=== PATIENT | female | born 1990 | race African-American/Black ===

== ENCOUNTER 2016-07-16 13:42 | Emergency (ER) | payer OTHER ==
[2016-07-16 13:53] VITALS: BP 100/53; PULSE 73; TEMP 98.5; BMI 26.6
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
[2016-07-16] MEDS ORDERED: SODIUM CHLORIDE 1,000 ML IV STA (14:58)
[2016-07-16] MEDS ORDERED: METOCLOPRAMIDE HCL INJECTION 10 MG/2 ML VIAL IVPB ONE (14:58)
[2016-07-16] MEDS ORDERED: METOCLOPRAMIDE HCL INJECTION 10 MG/2 ML VIAL ONE (15:10)
== END 2016-07-16 17:12 | disposition home or self-care (01) ==
LOC: JERFT 13:42
PROC: 3E033GC Introduction of Other Therapeutic Substance into Peripheral Vein, Percutaneous Approach (ICD-10-PCS; principal; 2016-07-16)
PROC: 3E0337Z Introduction of Electrolytic and Water Balance Substance into Peripheral Vein, Percutaneous Approach (ICD-10-PCS; 2016-07-16)
DX: O26.891 Other specified pregnancy related conditions, first trimester (principal); Z3A.01 Less than 8 weeks gestation of pregnancy; Y07.03 Male partner, perpetrator of maltreatment and neglect; Y04.2XXA Assault by strike against or bumped into by another person, initial encounter; Y93.9 Activity, unspecified; Y92.9 Unspecified place or not applicable
CPT/HCPCS: 76801-TC; 96361; 96374; 99281-25

== ENCOUNTER 2017-03-15 14:39 | Emergency (ER) | payer OTHER ==
[2017-03-15 14:54] VITALS: BMI 27.4
--- NOTE | 2017-03-15 17:15 | PDOC ---
History of Present Illness - General Chief Complaint: Vaginal Bleeding Stated Complaint: VAGINAL BLEEDING/7 WEEKS Time Seen by Provider: 03/15/17 17:01 - History of Present Illness Initial Comments: 03/15/17 18:06 26 F, @ 7 weeks, with 4 prior abortions and 1 miscarriage, no other significant past medical history, who presents to the ED with 6 days of vaginal spotting. She reports very mild bleeding that has not increased in severity. She also complains of mild suprapubic pain that is more pronounced on the left, as well as some intermittent nausea but no vomiting. The patient denies any saturated pads or passing any clots. Pt has not f/u'ed with OB yet for this and has not had an ultrasound. Pt denies F/C. Denies N/V/D. Denies dysuria. Past History - Past Medical History Allergies/Adverse Reactions: Allergies Allergy/AdvReac Type Severity Reaction Status Date / Time No Known Allergies Allergy Verified 03/15/17 14:51 Home Medications: Ambulatory Orders Vit/Iron Fumarate/FA [ Tablet] 1 each PO DAILY #30 tablet 07/16 COPD: No - Reproductive History Is Patient Now?: Yes (#): 6 Para: 1 Therapeutic (s) & number: Yes (2) Spontaneous : 2 - Suicide/Smoking/Psychosocial Hx Smoking Status: No Smoking History: Never smoked Have you smoked in the past 12 months: Yes Number of Cigarettes Smoked Daily: 1 Information on smoking cessation initiated: Yes 'Breaking Loose' booklet given: 03/15/17 Hx Alcohol Use: No Drug/Substance Use Hx: No Substance Use Type: None Review of Systems - Review of Systems Comments:: 03/15/17 18:08 "GENERAL/CONSTITUTIONAL: No fever or chills. No weakness. HEAD, EYES, EARS, NOSE AND THROAT: No change in vision. No ear pain or discharge. No sore throat. CARDIOVASCULAR: No chest pain or shortness of breath. RESPIRATORY: No cough, wheezing, or hemoptysis. GASTROINTESTINAL: Present: suprapubic pain No nausea, vomiting, diarrhea or constipation. GENITOURINARY: Present: vaginal spotting No dysuria, frequency, or change in urination. MUSCULOSKELETAL: No joint or muscle swelling or pain. No neck or back pain. SKIN: No rash NEUROLOGIC: No headache, vertigo, loss of consciousness, or change in strength/ sensation. ENDOCRINE: No increased thirst. No abnormal weight change. HEMATOLOGIC/LYMPHATIC: No anemia, easy bleeding, or history of blood clots. ALLERGIC/IMMUNOLOGIC: No hives or skin allergy. " *Physical Exam - Vital Signs Last Vital Signs Temp Pulse Resp BP Pulse Ox 98.7 F 62 18 102/58 100 03/15/17 14:51 03/15/17 14:51 03/15/17 14:51 03/15/17 14:51 03/15/17 14:51 - Physical Exam Comments: 03/15/17 18:09 "GENERAL: Awake, alert, and fully oriented, in no acute distress HEAD: No signs of trauma EYES: PERRLA, EOMI, sclera anicteric, conjunctiva clear ENT: Auricles normal inspection, hearing grossly normal, nares patent, oropharynx clear without exudates. Moist mucosa NECK: Nontender, no stepoffs, Normal ROM, supple, no lymphadenopathy, JVD, or masses LUNGS: Breath sounds equal, clear to auscultation bilaterally. No wheezes, and no crackles HEART: Regular rate and rhythm, normal S1 and S2, no murmurs, rubs or gallops ABDOMEN: Soft, gravid, mild suprapubic and LLQ tenderness, normoactive bowel sounds. No guarding, no rebound. No masses : no CMT, os closed, scant blood in vault, no adnexal masses or tenderness EXTREMITIES: Normal range of motion, no edema. No clubbing or cyanosis. No cords, erythema, or tenderness NEUROLOGICAL: Cranial nerves II through XII intact. 5/5 strength and sensation in all extremities, Normal speech, normal gait SKIN: Warm, Dry, normal turgor, no rashes or lesions noted. " ED Treatment Course - LABORATORY CBC & Chemistry Diagram: 03/15/17 17:40 03/15/17 17:40 - RADIOLOGY Radiology Studies Ordered: Category Date Time Status TRANSVAGINAL ULTRASOUND US [US] Stat Ultrasound 03/15/17 17:10 Ordered Medical Decision Making - Medical Decision Making 03/15/17 18:09 26 F with vaginal spotting @ 7 weeks . Will r/o ectopic . Also consider spontaneous ab. Os closed at this time. - Labs, beta HCG, UA, T&S - TVUS 03/15/17 21:00 Pt refusing to wait any longer for TVUS read. US images were sent to Imaging Distribution Designer at 7:30PM. Imaging Distribution Designer called multiple times. On my read, there appears to be an IUP with gestational sac and pole. No evidence of ectopic. Will DC pt at this time. Pt to be called if anything concerning on official read of TVUS. 03/15/17 21:14 TVUS report shows single IUP with FHR 163. Low amniotic fluid noted. Pt informed of results. Instructed to f/u with rn patient services within 1 week. Pt expresses understanding that failure to follow up could threaten her . I discussed the physical exam findings, ancillary test results and final diagnoses with the patient. I answered all of the patient's questions. The patient was satisfied with the care received and felt comfortable with the discharge plan and treatment plan. The patient agrees to follow up with her OB/ structural steel shop supervisor within 24-72 hours. *DC/Admit/Observation/Transfer Diagnosis at time of Disposition: Vaginal bleeding before 22 weeks gestation - Discharge Dispostion Disposition: HOME Condition at time of disposition: Stable - Referrals Referrals: Easton Sunshine [Primary Care Provider] - Diana Hobson MD [Staff Physician] - - Patient Instructions Printed Discharge Instructions: DI for Vaginal Bleeding During Additional Instructions: You must follow up with an premium representative within 3 days for repeat ultrasound and blood tests. We cannot definitively rule out ectopic at this time, which can potentially be life threatening, so it is important for you to follow up. Call the above number to make an appointment with our OB clinic. If you experience worsening pain, bleeding, or any other concerning symptoms, return to the ER immediately. - Post Discharge Activity - Attestations Physician Attestion: 03/15/17 20:42 I, Dr. Clif Cantor MD, attest that this document has been prepared under my direction and personally reviewed by me in its entirety. I further attest, that it accurately reflects all work, treatment, procedures and medical decision -making performed by me.
[2017-03-15 17:59] LABS: BASOPHIL 0.5 % (0-2.0); EOSINOPHIL 1.5 % (0-4.5); MCH 30.1 pg (25.7-33.7); MCHC 33.7 g/dl (32.0-36.0); MEAN CELL VOLUME 89.3 fl (80-96); NEUTROPHILS 60.4 % (42.8-82.8); PLATELET COUNT 186 K/MM3 (134-434); RDW 13.6 % (11.6-15.6); WHITE BLOOD COUNT 10.9 K/mm3 (4.0-10.0)
[2017-03-15 18:02] LABS: URINE APPEARANCE CLOUDY; URINE BILIRUBIN NEGATIVE (NEGATIVE); URINE BLOOD 3+ (NEGATIVE); URINE COLOR AMBER; URINE GLUCOSE (UA) NEGATIVE (NEGATIVE); URINE KETONE NEGATIVE (NEGATIVE); URINE NITRITE NEGATIVE (NEGATIVE)
[2017-03-15 18:08] LABS: ALBUMIN 3.6 g/dl (3.4-5.0); ANION GAP 6 (8-16); BILIRUBIN,TOTAL 0.1 mg/dL (0.2-1.0); CALCIUM 8.7 mg/dL (8.5-10.1); CO2 27 mmol/L (21-32); CREATININE 0.6 mg/dL (0.55-1.02); GLUCOSE,RANDOM 85 mg/dL (74-106); SGOT/AST 14 U/L (15-37); SGPT/ALT 25 U/L (12-78); TOT PROT 6.8 g/dl (6.4-8.2)
[2017-03-15 18:23] LABS: ALK PHOS 65 U/L (45-117)
[2017-03-15 18:29] LABS: URINE PROTEIN 1+ (NEGATIVE)
[2017-03-15 18:30] LABS: URINE LEUK ESTERASE 2+ (NEGATIVE)
[2017-03-15 18:56] LABS: URINE MUCUS MANY; URINE RBC 191 /hpf (0-3); URINE WBC 47 /hpf (3-5)
[2017-03-15 21:11] VITALS: BP 110/78; PULSE 78; TEMP 98.2
[2017-03-15 23:39] LABS: URINE LEUK ESTERASE 1+ (NEGATIVE)
== END 2017-03-15 21:11 | disposition home or self-care (01) ==
LOC: JER 14:39
DX: O26.891 Other specified pregnancy related conditions, first trimester (principal); O20.8 Other hemorrhage in early pregnancy; Z3A.01 Less than 8 weeks gestation of pregnancy
CPT/HCPCS: 36415; 76830-TC; 80053; 81003; 81015; 83690; 84702; 85025; 86850; 86900; 86901; 87086; 99284-25

== ENCOUNTER 2017-04-09 11:40 | Emergency (ER) | payer OTHER ==
[2017-04-09 11:49] VITALS: TEMP 97.8; BMI 27.4
--- NOTE | 2017-04-09 13:48 | PDOC ---
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 Pt states she has not been able to keep anything down for 3 weeks, not even a sip of water. When pressed, she states she is able to hold down 1 meal per day. Pt requesting IV. Pt states she has been vomiting several times daily. Vomit is yellow, approximately 1 cup. Pt admits to having chills, but did not measure temp at home. Pt also admits to dark colored urine and feeling constipated. She states she had spotting early in this , which stopped 2 weeks ago. No other complaints. Pt denies abdominal pain, diarrhea, blood in urine/stools. Past History - Past Medical History Allergies/Adverse Reactions: Allergies Allergy/AdvReac Type Severity Reaction Status Date / Time No Known Allergies Allergy Verified 04/09/17 11:49 Home Medications: Ambulatory Orders Doxylamine Succinate/Vit B6 [Flakito Farrar 10-10 mg Tablet] 2 each PO HS #20 tablet. 04/09/17 COPD: No - Reproductive History Is Patient Now?: Yes (#): 5 Para: 2 Therapeutic (s) & number: Yes (2) Spontaneous : 2 - Suicide/Smoking/Psychosocial Hx Smoking Status: No Smoking History: Never smoked Have you smoked in the past 12 months: Yes Number of Cigarettes Smoked Daily: 1 'Breaking Loose' booklet given: 03/15/17 Hx Alcohol Use: No Drug/Substance Use Hx: No Substance Use Type: None Review of Systems - Review of Systems Able to Perform ROS?: Yes Is the patient limited Greek proficient: No Constitutional: Yes: Symptoms Reported, Chills, Loss of Appetite. No: Diaphoresis, Fever, Night Sweats HEENTM: Yes: Symptoms Reported. No: Blurred Vision, Nose Congestion, Throat Pain Respiratory: Yes: Symptoms reported. No: Cough, Shortness of Breath, Wheezing Cardiac (ROS): Yes: Symptoms Reported. No: Chest Pain, Edema ABD/GI: Yes: Symptoms Reported, Constipated, Nausea, Poor Appetite, Poor Fluid Intake, Vomiting. No: Abdominal Distended, Diarrhea, Rectal Bleeding, Indigestion : Yes: Symptoms Reported. No: Burning, Dysuria, Discharge, Frequency Musculoskeletal: Yes: Symptoms Reported. No: Back Pain, Joint Pain *Physical Exam - Vital Signs Last Vital Signs Temp Pulse Resp BP Pulse Ox 97.8 F 61 20 114/71 100 04/09/17 11:46 04/09/17 11:46 04/09/17 11:46 04/09/17 11:46 04/09/17 11:46 - Physical Exam General Appearance: Yes: Nourished, Appropriately Dressed. No: Apparent Distress HEENT: positive: EOMI, COLT, Normal ENT Inspection (moist mucous membranes), Normal Voice, Symmetrical. negative: Pale Conjunctivae Neck: positive: Supple. negative: Tender Respiratory/Chest: positive: Lungs Clear, Normal Breath Sounds. negative: Chest Tender, Respiratory Distress, Labored Respiration Cardiovascular: positive: Regular Rhythm, Regular Rate, S1, S2 (distant) Gastrointestinal/Abdominal: positive: Normal Bowel Sounds, Flat, Soft. negative : Tender Neurologic: positive: Fully Oriented, Alert ED Treatment Course - LABORATORY CBC & Chemistry Diagram: 04/09/17 15:05 04/09/17 15:05 Medical Decision Making - Medical Decision Making 04/09/17 13:51 Pt is a 27 y/o F with PMH 2 elective and 2 spontaneous abortions who complains of nausea and vomiting for 2-3 weeks. Plan -CBC -CMP -UA -UCx -U preg -U/S -D50 LR -Pepcid -ondansetron 04/09/17 16:17 Labs unremarkable Pt still nauseous. 8 Zofran *DC/Admit/Observation/Transfer Diagnosis at time of Disposition: Dehydration during , Hyperemesis arising during - Discharge Dispostion Disposition: HOME Admit: No - Prescriptions Prescriptions: Doxylamine Succinate/Vit B6 [Flakito Farrar 10-10 mg Tablet] 2 each PO HS #20 tablet.dr - Referrals Referrals: Easton Sunshine [Primary Care Provider] - Michele Xiong MD [Staff Physician] - - Patient Instructions Additional Instructions: Please make sure you follow up with your primary care doctor and your CLOTHES MARKER within 3 days. Please take all your prescription medications and your vitamin supplements as directed. If you develop new symptoms or if your symptoms get worse, please return to the emergency department. - Post Discharge Activity
[2017-04-09] MEDS ORDERED: ONDANSETRON 4 MG/2 ML VIAL IVPUSH ONE ×2 (14:45→17:13)
[2017-04-09] MEDS ORDERED: DEXTROSE 5%-LACTATED RINGERS 1,000 ML IV SCH (14:45)
[2017-04-09] MEDS ORDERED: ONDANSETRON 4 MG/2 ML VIAL ONE ×2 (15:22→17:39)
[2017-04-09] MEDS ORDERED: FAMOTIDINE 20 MG/50 ML IVPB 20 MG/50 ML MG IVPB ONE (15:22)
[2017-04-09 15:24] LABS: BASO % 0.4 % (0-2.0); EOS % 0.4 % (0-4.5); HEMATOCRIT 37.2 % (32.4-45.2); HEMOGLOBIN 12.5 GM/dL (10.7-15.3); LYMPH % 19.1 % (8-40); MCH 29.5 pg (25.7-33.7); MCHC 33.5 g/dl (32.0-36.0); MEAN CELL VOLUME 87.9 fl (80-96); MEAN PLT VOLUME 9.8 fl (7.5-11.1); MONO % 5.5 % (3.8-10.2); NEUT % 74.6 % (42.8-82.8); PLATELET COUNT 168 K/MM3 (134-434); RBC 4.23 M/mm3 (3.60-5.2); RDW 13.3 % (11.6-15.6)
[2017-04-09] MEDS ORDERED: FAMOTIDINE IV 20 MG/12 ML VIAL IVPUSH ONE (15:26)
[2017-04-09 15:40] LABS: URINE APPEARANCE CLOUDY; URINE BILIRUBIN NEGATIVE (NEGATIVE); URINE BLOOD NEGATIVE (NEGATIVE); URINE COLOR AMBER; URINE GLUCOSE (UA) NEGATIVE (NEGATIVE); URINE KETONE 2+ (NEGATIVE); URINE NITRITE NEGATIVE (NEGATIVE); URINE UROBILINOGEN NEGATIVE mg/dL (0.2-1.0)
[2017-04-09 16:17] LABS: URINE LEUK ESTERASE 1+ (NEGATIVE); URINE PROTEIN 2+ (NEGATIVE)
[2017-04-09 16:23] LABS: ALK PHOS 52 U/L (45-117); ANION GAP 7 (8-16); BILIRUBIN,TOTAL 0.3 mg/dL (0.2-1.0); BLOOD UREA NITROGEN 5 mg/dL (7-18); CALCIUM 9.2 mg/dL (8.5-10.1); CHLORIDE 104 mmol/L (98-107); CO2 27 mmol/L (21-32); CREATININE 0.5 mg/dL (0.55-1.02); GLUCOSE,RANDOM 69 mg/dL (74-106); POTASSIUM 3.9 mmol/L (3.5-5.1); SGOT/AST 11 U/L (15-37); SGPT/ALT 20 U/L (12-78); SODIUM 138 mmol/L (136-145); TOT PROT 7.2 g/dl (6.4-8.2)
[2017-04-09 17:05] LABS: EPI CELLS MANY /HPF (FEW); URINE MUCUS MANY
--- NOTE | 2017-04-09 17:22 | PDOC ---
Attending Attestation - Resident Resident Name: Sergio Childers - ED Attending Attestation I have performed the following: I have examined & evaluated the patient, The case was reviewed & discussed with the resident, I agree w/resident's findings & plan, Exceptions are as noted - HPI HPI: 04/09/17 17:18 27-year-old female, 5 para 1, at approximately 10 weeks gestation presents with numerous episodes of nonbloody, nonbilious vomiting for the past several weeks with failure to gain weight. - Physicial Exam PE: 04/09/17 17:18 Patient is awake and alert, nontoxic-appearing, afebrile, hemodynamically stable No scleral icterus mmm rrr cta sft, nt, nd - Medical Decision Making 04/09/17 17:20 Patient is a 27-year-old female, 5 para 1, 10 weeks gestation presents with signs and symptoms of hyperemesis gravidarum. Patient has received on liter of D5 LR as well as Zofran and Pepcid with improvement in level of her symptoms. Patient is able tolerate by mouth liquids. CBC/CMP are within normal limit. Urinalysis reveals numerous epithelial cells and 11 wbc's. The specimen is contaminated. Will discharge patient with they Diclegis. Will advise GRIP follow-up.
[2017-04-09 17:47] VITALS: BP 110/58; PULSE 68
[2017-04-09] MEDS ORDERED: FAMOTIDINE IV 20 MG/12 ML VIAL IVPUSH SCH (22:00)
== END 2017-04-09 17:48 | disposition home or self-care (01) ==
LOC: JER 11:40
PROC: 3E033GC Introduction of Other Therapeutic Substance into Peripheral Vein, Percutaneous Approach (ICD-10-PCS; principal; 2017-04-09)
DX: O26.891 Other specified pregnancy related conditions, first trimester (principal); O21.1 Hyperemesis gravidarum with metabolic disturbance; Z3A.11 11 weeks gestation of pregnancy
CPT/HCPCS: 36415; 80053; 81003; 81015; 85025; 87086; 96365; 96367; 96375; 96376; 99282-25

== ENCOUNTER 2017-12-23 23:38 | Emergency (ER) | payer SELFPAY ==
[2017-12-23 23:44] VITALS: BMI 28.2
--- NOTE | 2017-12-24 01:01 | PDOC ---
History of Present Illness - General Chief Complaint: Pain Stated Complaint: VOMITING,ABDOMINAL PAIN Time Seen by Provider: 12/24/17 00:13 History Source: Patient Exam Limitations: No Limitations - History of Present Illness Travel History: No Timing/Duration: reports: intermittent Abdominal Pain Onset Location: reports: suprapubic, other (pelvic discomfort) Pain Radiation: reports: no radiation Activities at Onset: reports: none Aggravating Factors: improves with: None Past History - Travel Traveled outside of the country in the last 30 days: No Close contact w/someone who was outside of country & ill: No - Past Medical History Allergies/Adverse Reactions: Allergies Allergy/AdvReac Type Severity Reaction Status Date / Time No Known Allergies Allergy Verified 12/23/17 23:44 Home Medications: Ambulatory Orders Doxylamine Succinate/Vit B6 [Diclegis Dr 10-10 mg Tablet] 2 each PO HS #20 tablet.dr 04/09/17 Cephalexin Monohydrate [Keflex -] 500 mg PO BID #10 capsule 12/24/17 Ondansetron [Zofran Odt -] 4 mg SL TID PRN #21 od.tablet 12/24/17 COPD: No - Surgical History Other Surgical History: 12/24/17 01:08 c section x 1 - Reproductive History (#): 5 Para: 2 Therapeutic (s) & number: Yes (2) Spontaneous : 2 - Suicide/Smoking/Psychosocial Hx Smoking Status: No Smoking History: Never smoked Have you smoked in the past 12 months: Yes Number of Cigarettes Smoked Daily: 1 'Breaking Loose' booklet given: 03/15/17 Hx Alcohol Use: No Drug/Substance Use Hx: No Substance Use Type: None Review of Systems - Review of Systems Able to Perform ROS?: Yes Is the patient limited Burundian proficient: No Constitutional: No: Symptoms Reported, See HPI, Chills, Diaphoresis, Fever, Loss of Appetite, Malaise, Night Sweats, Weakness, Weight Stable, Unintentional Wgt. Loss, Unexplained wgt Loss, Other HEENTM: No: Symptoms Reported, See HPI, Eye Pain, Blurred Vision, Tearing, Recent change in vision, Double Vision, Cataracts, Ear Pain, Ocular Prothesis, Ear Discharge, Nose Pain, Nose Congestion, Tinnitus, Nose Bleeding, Hearing Loss , Throat Pain, Throat Swelling, Mouth Pain, Dental Problems, Difficulty Swallowing, Mouth Swelling, Other Respiratory: No: Symptoms reported, See HPI, Cough, Orthopnea, Shortness of Breath, SOB with Exertion, SOB at Rest, Stridor, Wheezing, Productive cough, Hemoptysis, Other Cardiac (ROS): No: Symptoms Reported, See HPI, Chest Pain, Edema, Irregular Heart Rate, Lightheadedness, Palpitations, Syncope, Chest Tightness, Other ABD/GI: Yes: Nausea, Vomiting, Other (mild suprapubic tenderness) : No: Symptoms Reported, See HPI, Burning, Dysuria, Discharge, Frequency, Flank Pain, Hematuria, Incontinence, Pain, Urgency, Testicular Mass, Testicular Swelling, Lesions, Testicular Pain, Other Musculoskeletal: No: Symptoms Reported, See HPI, Back Pain, Gout, Joint Pain, Joint Swelling, Muscle Pain, Muscle Weakness, Neck Pain, Joint Stiffness, Other Integumentary: No: Symptoms Reported, See HPI, Bruising, Change in Color, Change in Hair/Nails, Dryness, Erythema, Flushing, Lesions, Lumps, Pallor, Pruritus, Rash, Sweating, Other Neurological: No: Symptoms reported, See HPI, Headache, Numbness, Paresthesia, Pre-Existing Deficit, Seizure, Tingling, Tremors, Weakness, Unsteady Gait, Ataxia, Dizziness, Other Hematologic/Lymphatic: No: Symptoms Reported, See HPI, Anemia, Blood Clots, Easy Bleeding, Easy Bruising, Bleeding Diathesis, Lymph Node Abnormalities, Swollen Glands, Other *Physical Exam - Vital Signs Last Vital Signs Temp Pulse Resp BP Pulse Ox 98.8 F 64 18 115/47 L 99 12/23/17 23:42 12/23/17 23:42 12/23/17 23:42 12/23/17 23:42 12/23/17 23:42 - Physical Exam General Appearance: Yes: Nourished, Appropriately Dressed HEENT: positive: EOMI, Normal Voice Neck: positive: Supple Respiratory/Chest: positive: Lungs Clear Cardiovascular: positive: Regular Rhythm, Regular Rate Female Pelvic Exam: positive: other (she denies vaginal bleeding) Gastrointestinal/Abdominal: positive: Other (mild suprapubic discomfort) Musculoskeletal: positive: Normal Inspection Extremity: positive: Normal Inspection, Normal Range of Motion Integumentary: positive: Normal Color, Warm Neurologic: positive: electric lineman II-XII NML intact, Fully Oriented, Alert, Motor Strength 08/02 ED Treatment Course - LABORATORY CBC & Chemistry Diagram: 12/24/17 01:36 12/24/17 01:36 Medical Decision Making - Medical Decision Making 12/24/17 01:21 27-year-old female presents because she's had nausea, vomiting about a week. She states that her last menstrual cycle was in September and might be . Past medical history 6 para 1. She denies fever or chills or diarrhea. On exam, she has no rebound or guarding on her abdominal exam 12/24/17 02:38 Transvaginal ultrasound reveals a single live intrauterine of 9 weeks 1 day, heart tones are 157 bpm, good flow to both ovaries without signs of torsion UA has some leuk and wbc ,will give keflex Impression hyperemesis related to , first trimester .,uti Plan follow-up with MEDICAL OFFICE TECHNOLOGY INSTRUCTOR 12/24/17 02:41 *DC/Admit/Observation/Transfer Diagnosis at time of Disposition: Hyperemesis gravidarum, First trimester UTI (urinary tract infection) Qualifiers: Urinary tract infection type: site unspecified Hematuria presence: without hematuria Qualified Code(s): N39.0 - Urinary tract infection, site not specified - Discharge Dispostion Disposition: HOME Condition at time of disposition: Stable - Prescriptions Prescriptions: Cephalexin Monohydrate [Keflex -] 500 mg PO BID #10 capsule Ondansetron [Zofran Odt -] 4 mg SL TID PRN #21 od.tablet PRN Reason: Nausea And/Or Vomiting - Referrals Referrals: Callum Matta MD [Primary Care Provider] - - Patient Instructions Printed Discharge Instructions: DI for -- Discomforts and Remedies, DI for Hyperemesis Gravidarum Additional Instructions: please followup with your briquette machine operator helper for continued care pickling operator your medications at your pharmacy - Post Discharge Activity
[2017-12-24 01:23] LABS: URINE APPEARANCE SLCLOUDY; URINE BILIRUBIN NEGATIVE (<2.0 mg/dL); URINE COLOR YELLOW; URINE GLUCOSE (UA) NEGATIVE (NEGATIVE); URINE KETONE 1+ (NEGATIVE); URINE LEUK ESTERASE TRACE (NEGATIVE); URINE NITRITE NEGATIVE (NEGATIVE)
[2017-12-24 01:25] LABS: URINE PROTEIN 1+ (NEGATIVE)
[2017-12-24 01:27] LABS: EPI CELLS MODERATE /HPF (FEW); URINE BACTERIA FEW /hpf (NONE SEEN); URINE MUCUS MANY
[2017-12-24 01:46] LABS: BASO % 0.3 % (0-2.0); EOS % 0.6 % (0-4.5); HEMATOCRIT 35.2 % (32.4-45.2); HEMOGLOBIN 11.8 GM/dL (10.7-15.3); LYMPH % 19.9 % (8-40); MCH 29.3 pg (25.7-33.7); MCHC 33.5 g/dl (32.0-36.0); MEAN CELL VOLUME 87.3 fl (80-96); MEAN PLT VOLUME 9.1 fl (7.5-11.1); MONO % 5.1 % (3.8-10.2); NEUT % 74.1 % (42.8-82.8); PLATELET COUNT 195 K/MM3 (134-434); RBC 4.04 M/mm3 (3.60-5.2); RDW 13.4 % (11.6-15.6)
[2017-12-24 02:07] LABS: ALBUMIN 3.5 g/dl (3.4-5.0); ALK PHOS 50 U/L (45-117); ANION GAP 6 MMOL/L (8-16); BILIRUBIN,TOTAL 0.2 mg/dL (0.2-1); BLOOD UREA NITROGEN 5 mg/dL (7-18); CALCIUM 8.4 mg/dL (8.5-10.1); CHLORIDE 105 mmol/L (98-107); CO2 28 mmol/L (21-32); CREATININE 0.5 mg/dL (0.55-1.3); GLUCOSE,RANDOM 84 mg/dL (74-106); POTASSIUM 3.6 mmol/L (3.5-5.1); SGOT/AST 10 U/L (15-37); SGPT/ALT 16 U/L (13-61); SODIUM 138 mmol/L (136-145); TOT PROT 6.5 g/dl (6.4-8.2)
[2017-12-24] MEDS ORDERED: ONDANSETRON *ODT* 4 MG TABLET SL ONE (02:08)
[2017-12-24] MEDS ORDERED: CEPHALEXIN MONOHYDRATE 500 MG CAPSULE (UD) PO STA (02:08)
[2017-12-24] MEDS ORDERED: ONDANSETRON *ODT* 4 MG TABLET ONE (02:44)
[2017-12-24] MEDS ORDERED: CEPHALEXIN MONOHYDRATE 500 MG CAPSULE (UD) ONE (02:44)
[2017-12-24 02:55] VITALS: BP 118/47; PULSE 75; TEMP 98.2
== END 2017-12-24 03:01 | disposition home or self-care (01) ==
LOC: JER 23:38
DX: O26.891 Other specified pregnancy related conditions, first trimester (principal); O21.0 Mild hyperemesis gravidarum; O23.41 Unspecified infection of urinary tract in pregnancy, first trimester; Z3A.09 9 weeks gestation of pregnancy
CPT/HCPCS: 36415; 76801-TC; 80053; 81003; 81015; 84703; 85025; 99283-25; Q0162

== ENCOUNTER 2018-02-04 11:27 | Emergency (ER) | payer SELFPAY ==
[2018-02-04 11:31] VITALS: BP 103/53; PULSE 80; TEMP 98.2; BMI 29.3
[2018-02-04] MEDS ORDERED: ACETAMINOPHEN 1000 MG/100 ML VIAL (NON FORMULARY) IVPB ONE (12:10)
[2018-02-04] MEDS ORDERED: SODIUM CHLORIDE 1,000 ML IV STA (12:10)
[2018-02-04] MEDS ORDERED: FAMOTIDINE 20 MG/50 ML IVPB 20 MG/50 ML MG IVPB ONE ×2 (12:10→13:33)
--- NOTE | 2018-02-04 12:10 | PDOC ---
History of Present Illness - General Chief Complaint: Pain Stated Complaint: STOMACH PAIN/14 WKS Time Seen by Provider: 02/04/18 12:10 History Source: Patient Exam Limitations: No Limitations - History of Present Illness Initial Comments: 02/04/18 13:57 Ronit 27 YOF female([id number]), currently 14 weeks with no significant past medical history who presents to the emergency department with epigastric abdominal pain since last night. The patient reports that she she woke up at about 1am with worsened abdominal pain that began while she was at work last night. The patient reports that her pain is a burning punching-like sensation. The patient reports some associated loose stool and nausea. She states that while at work last night she was in the bathroom for about an hour with her pain and diarrhea and subsequently began feeling very hot. The patient states that she has not experienced an episode like this in the past. She denies any back pain, urinary symptoms, vaginal bleeding or discharge. The patient also reports some blood per rectum when she has bowel movement, but has hemorrhoids . she denies any other symptoms. She denies any fever, chills, vomiting, constipation . she denies any shortness of breath, chest pain, headache or dizziness. The patient denies any other complaints. Past History - Past Medical History Allergies/Adverse Reactions: Allergies Allergy/AdvReac Type Severity Reaction Status Date / Time No Known Allergies Allergy Verified 02/04/18 11:31 Home Medications: Ambulatory Orders Doxylamine Succinate/Vit B6 [Diclegis 10-10 mg Tablet] 2 each PO HS #20 tablet. 04/09/17 Cephalexin Monohydrate [Keflex -] 500 mg PO BID #10 capsule 12/24/17 Ondansetron [Zofran Odt -] 4 mg SL TID PRN #21 od.tablet 12/24/17 Doxylamine Succinate/Vit B6 [Diclegis Dr 10-10 mg Tablet] 1 each PO DAILY PRN # 15 tablet. 02/04/18 Famotidine [Pepcid -] 20 mg PO DAILY #30 tablet 02/04/18 COPD: No - Reproductive History (#): 5 Para: 2 Therapeutic (s) & number: Yes (2) Spontaneous : 2 - Suicide/Smoking/Psychosocial Hx Smoking Status: No Smoking History: Never smoked Have you smoked in the past 12 months: Yes Number of Cigarettes Smoked Daily: 1 Information on smoking cessation initiated: No 'Breaking Loose' booklet given: 03/15/17 Hx Alcohol Use: No Drug/Substance Use Hx: No Substance Use Type: None Review of Systems - Review of Systems Able to Perform ROS?: Yes Comments:: 02/04/18 13:58 Constitutional: no fevers or chills. HEENT: no headache or dizziness. No congestion. No visual/hearing disturbances. CVS: no cp or syncope. Resp: no sob. No cough. Abdomen: (+) abdominal pain, nausea . +loose stool.. no vomiting. Genitourinary: no urinary sx, hematuria. MUSCULOSKELETAL: No joint pain and swelling. No neck or back pain. SKIN: no redness or skin changes, no discharge, no rash. No wounds. Hematologic: no easy bruising/bleeding. NEUROLOGIC: No headache, dizziness, LOC or altered mental status. No weakness, numbness or tingling. All other systems reviewed and negative, or as documented in HPI. *Physical Exam - Vital Signs Last Vital Signs Temp Pulse Resp BP Pulse Ox 98.2 F 80 19 103/53 L 100 02/04/18 11:29 02/04/18 11:29 02/04/18 11:29 02/04/18 11:29 02/04/18 11:29 - Physical Exam Comments: 02/04/18 14:24 General: Well appearing, awake and alert, NAD. HEENT: NCAT, PERRL, EOMI, clear conjunctiva, anicteric, moist mucus membranes, clear oropharynx, no oral lesions.. Neck: neck supple, FROM Resp: CTAB, normal and even respirations, no respiratory distress CVS: RRR, no murmurs, 2+ peripheral pulses throughout, no peripheral edema Abdomen:(+) epigastric tenderness. No murphys sign, no Mcburneys sign tenderness, no CVA tenderness. no peritoneal signs. Rectal:(+) external non thrombosed, non bloody non tender hemorrhoid Back: nontender, normal inspection and ROM MSK: no edema, DURHAM x4, ROM intact. No clubbing or cyanosis. normal bulk and tone. Extrem: no calf tenderness Neuro: alert, oriented appropriately; no focal neurologic deficits Skin: warm and well perfused, cap refill <2 sec, normal color Procedures - Bedside Ultrasound Bedside Ultrasound: Gallbladder Remarks: 02/04/18 13:21 Bedside pelvic US performed for female with abdominal pain. views obtained: long and short axis of uterus, findings include live IUP visualized dated at, FHR 146-160 bpm. Impression: live IUP visualized. POCUS biliary exam: Indication: abdominal pain Views: gallbladder long and s hort axis, CBD Findings: no stones or GB wall thickening or pericholecystic fluid. Neg sono murphys Impression: no acute findings. No cholelithiasis or cholecystitis. ED Treatment Course - LABORATORY CBC & Chemistry Diagram: 02/04/18 12:40 02/04/18 12:40 Medical Decision Making - Medical Decision Making 02/04/18 13:18 27-year-old female currently at 14 weeks gestation presenting with epigastric abdominal burning pain and nausea. No vomiting or diarrhea, fevers or chills or urinary symptoms. Vital signs reviewed, wnl. Prior notes reviewed, including admissions, discharges and consultations. laboratory results and imaging reviewed, basic labs and lytes wnl, notable for leukocytosis, but can be physiologic as she is , and no fever or systemic sx. lfts and lipase normal. UA_with some ketones, but hydrated with fluids. no s/s infection. bedside pelvic US with live IUP 160 bpm to 146 bpm, FM noted, no pelvic FF. bedside biliary US neg for gallstones, no mojica's sign, no s/s acute amado ED course: no acute events, remained stable and well appearing. Clinically improved after interventions, including pepcid, maalox and IVF. instructions on supportive care, GERD precautions, rx as needed pepcid and maalox PRN heartburn. 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 Dispo: I discussed the physical exam findings, ancillary test results and final diagnoses with the patient. I answered all of the patient's questions. The patient was satisfied with the care received and felt comfortable with the discharge plan and treatment plan. The patient will return to the Emergency Department with any new, persistent or worsening symptoms. 02/04/18 13:27 *DC/Admit/Observation/Transfer Diagnosis at time of Disposition: Abdominal pain - Discharge Dispostion Disposition: HOME Condition at time of disposition: Improved Decision to Admit order: No - Prescriptions Prescriptions: Doxylamine Succinate/Vit B6 [Diclegis Dr 10-10 mg Tablet] 1 each PO DAILY PRN # 15 tablet.dr PRN Reason: Nausea And/Or Vomiting Famotidine [Pepcid -] 20 mg PO DAILY #30 tablet - Referrals Referrals: Josy Virk MD [Staff Physician] - Chata Flores MD [Staff Physician] - - Patient Instructions Printed Discharge Instructions: DI for Gastroesophageal Reflux Disease (GERD), DI for Abdominal Pain -- Early , GERD Diet Additional Instructions: Your laboratory / imaging results were normal, your bedside ultrasound showed a live baby as well as no gallstones Follow up with your physician and consultants as instructed, take your medications as instructed including Diclegis daily as needed for nausea/vomiting , GERD diet provided, pepcid daily and use maalox every 6 hours as needed for heartburn, as this can occur in your . Return if worsening symptoms including fevers, headache, vomiting, visual or hearing disturbances, abdominal pain, chest pain, shortness of breath, syncope, dehydration, inability to take things by mouth/vomiting, altered mental status, vaginal bleeding, passing out, or worsening concerning symptoms. do not drink alcohol with your medications. continue your prenatals. - Post Discharge Activity
[2018-02-04] MEDS ORDERED: ACETAMINOPHEN INJECTION 100 ML IVPB ONE (12:42)
[2018-02-04 12:48] LABS: BASO % 0.3 % (0-2.0); EOS % 0.5 % (0-4.5); HEMATOCRIT 32.9 % (32.4-45.2); HEMOGLOBIN 11.2 GM/dL (10.7-15.3); LYMPH % 8.5 % (8-40); MCH 29.9 pg (25.7-33.7); MCHC 34.1 g/dl (32.0-36.0); MEAN CELL VOLUME 87.7 fl (80-96); MEAN PLT VOLUME 9.7 fl (7.5-11.1); NEUT % 86.7 % (42.8-82.8); PLATELET COUNT 183 K/MM3 (134-434); RBC 3.75 M/mm3 (3.60-5.2); RDW 13.6 % (11.6-15.6)
[2018-02-04 13:06] LABS: ALBUMIN 3.3 g/dl (3.4-5.0); ALK PHOS 54 U/L (45-117); ANION GAP 10 MMOL/L (8-16); BILIRUBIN,TOTAL 0.2 mg/dL (0.2-1); BLOOD UREA NITROGEN 4 mg/dL (7-18); CALCIUM 8.9 mg/dL (8.5-10.1); CHLORIDE 103 mmol/L (98-107); CO2 24 mmol/L (21-32); CREATININE 0.5 mg/dL (0.55-1.3); GLUCOSE,RANDOM 83 mg/dL (74-106); LIPASE 120 U/L (73-393); POTASSIUM 3.8 mmol/L (3.5-5.1); SGOT/AST 32 U/L (15-37); SGPT/ALT 46 U/L (13-61); SODIUM 137 mmol/L (136-145); TOT PROT 6.5 g/dl (6.4-8.2)
[2018-02-04 13:12] LABS: URINE APPEARANCE CLEAR; URINE BILIRUBIN NEGATIVE (<2.0 mg/dL); URINE COLOR LTYELLOW; URINE GLUCOSE (UA) NEGATIVE (NEGATIVE); URINE KETONE 2+ (NEGATIVE); URINE LEUK ESTERASE NEGATIVE (NEGATIVE); URINE NITRITE NEGATIVE (NEGATIVE); URINE PROTEIN NEGATIVE (NEGATIVE); URINE UROBILINOGEN NEGATIVE mg/dL (0.2-1.0)
[2018-02-04] MEDS ORDERED: MAG HYDROX/AL HYDROX/SIMETH 30 ML UNIT-DOSE CUP PO ONE (13:14)
[2018-02-04] MEDS ORDERED: MAG HYDROX/AL HYDROX/SIMETH 30 ML UNIT-DOSE CUP ONE (13:17)
== END 2018-02-04 14:11 | disposition home or self-care (01) ==
LOC: JER 11:27
PROC: 3E033NZ Introduction of Analgesics, Hypnotics, Sedatives into Peripheral Vein, Percutaneous Approach (ICD-10-PCS; principal; 2018-02-04)
PROC: 3E033GC Introduction of Other Therapeutic Substance into Peripheral Vein, Percutaneous Approach (ICD-10-PCS; 2018-02-04)
PROC: 3E0337Z Introduction of Electrolytic and Water Balance Substance into Peripheral Vein, Percutaneous Approach (ICD-10-PCS; 2018-02-04)
DX: O26.891 Other specified pregnancy related conditions, first trimester (principal); Z3A.14 14 weeks gestation of pregnancy; R10.13 Epigastric pain
CPT/HCPCS: 36415; 80053; 81003; 83690; 85025; 87086; 99282-25; J0131; J7030

== ENCOUNTER 2019-04-17 12:37 | Emergency (ER) | payer OTHER ==
[2019-04-17 12:44] VITALS: BP 109/65; PULSE 95; TEMP 101; BMI 29.0
[2019-04-17] MEDS ORDERED: ACETAMINOPHEN 500 MG TABLET (FP) PO ONE (13:10)
[2019-04-17] MEDS ORDERED: ONDANSETRON *ODT* 4 MG TABLET SL ONE (13:10)
[2019-04-17] MEDS ORDERED: ACETAMINOPHEN 500 MG TABLET (FP) ONE (13:13)
[2019-04-17] MEDS ORDERED: ONDANSETRON *ODT* 4 MG TABLET ONE (13:13)
--- NOTE | 2019-04-17 13:18 | PDOC ---
History of Present Illness - General Chief Complaint: Cold Symptoms Stated Complaint: COLD SYMPTOMS Time Seen by Provider: 04/17/19 12:49 History Source: Patient Exam Limitations: No Limitations - History of Present Illness Initial Comments: 04/17/19 13:16 HISTORY OF PRESENT ILLNESS: 29-year-old woman who denies medical history of presents emergency department for evaluation of fevers, body aches, sore throat and headaches for the past 3 to 4 days. Patient also endorses some dysuria which is been present for the past 2 days. 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 No recent travel or sick contacts. PAST MEDICAL HISTORY: Denies past medical history SURGICAL HISTORY: Denies ALLERGIES: No known drug allergies REVIEW OF SYSTEMS General/Constitutional: +fever. Denies weakness, weight change. HEENT: Denies change in vision. Denies ear pain or discharge. +sore throat. Cardiovascular: Denies chest pain or shortness of breath. Respiratory: Moist productive cough. Denies wheezing, or hemoptysis. Gastrointestinal: Denies nausea, vomiting, diarrhea or constipation. Denies rectal bleeding. Genitourinary: Dysuria Musculoskeletal: +myalgias. Denies neck or back pain. Skin and breasts: Denies rash or easy bruising. Neurologic: Denies headache, vertigo, loss of consciousness, or loss of sensation. Psychiatric: Denies depression or anxiety. Endocrine: Denies increased thirst. Denies abnormal weight change. Hematologic/Lymphatic: Denies anemia, easy bleeding, or history of blood clots. Allergic/Immunologic: Denies hives or skin allergy. Denies latex allergy. PHYSICAL EXAM General Appearance: Well-appearing, appropriately dressed. No apparent distress , no intoxication. HEENT: EOMI, PERRLA, normal voice, TMs retracted bilaterally. No conjunctival pallor. No photophobia, scleral icterus. Oropharynx erythematous without lesions or exudate. Cobblestoning noted in the posterior. No nasal discharge present. Neck: Supple. Trachea midline. No tenderness, rigidity, carotid bruit, stridor , or thyromegaly. Nontender anterior cervical lymphadenopathy present. Respiratory/Chest: Lungs CTAB. No shortness of breath, chest tenderness, respiratory distress, accessory muscle use. No crackles, rales, rhonchi, stridor , wheezing, dullness Cardiovascular: RRR. S1, S2. No JVD, murmur, bradycardia, tachycardia. Vascular Pulses: Dorsalis-Pedis (R): 2+, Dorsalis-Pedis (L): 2+ Gastrointestinal/Abdominal: Normal bowel sounds. Abdomen soft, non-distended. No tenderness or rebound tenderness. No organomegaly, pulsatile mass, guarding, hernia, hepatomegaly, splenomegaly. Musculoskeletal/Extremities: Normal inspection. FROM of all extremities, normal capillary refill. Pelvis Stable. No CVA tenderness. No tenderness to extremities, pedal edema, swelling, erythema or deformity. Integumentary: Appropriate color, dry, warm. 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 Fully oriented, alert. Appropriate mood/affect. Motor strength 5/5. No appreciable EOM palsy, facial droop or sensory deficit. Past History - Past Medical History Allergies/Adverse Reactions: Allergies Allergy/AdvReac Type Severity Reaction Status Date / Time No Known Allergies Allergy Verified 04/17/19 12:44 Home Medications: Ambulatory Orders NK [No Known Home Medication] 04/17/19 COPD: No - Reproductive History (#): 5 Para: 2 Therapeutic (s) & number: Yes (2) Spontaneous : 2 - Psycho Social/Smoking Cessation Hx Smoking Status: No Smoking History: Never smoked Have you smoked in the past 12 months: Yes Number of Cigarettes Smoked Daily: 1 'Breaking Loose' booklet given: 03/15/17 Hx Alcohol Use: No Drug/Substance Use Hx: No Substance Use Type: None *Physical Exam - Vital Signs Last Vital Signs Temp Pulse Resp BP Pulse Ox 101 F H 95 H 18 109/65 100 04/17/19 12:42 04/17/19 12:42 04/17/19 12:42 04/17/19 12:42 04/17/19 12:42 Medical Decision Making - Medical Decision Making 04/17/19 13:17 A/P: 29-year-old woman with flulike symptoms for the past 3 to 4 days with dysuria for 2 days As patient is outside the window for influenza treatment I will defer testing at this time. Urinalysis, urine culture, urine Tylenol 1 g orally now Zofran 4 mg sublingual Reassess 04/17/19 13:55 Urinalysis is unremarkable. I will discharge patient home with supportive treatment of symptoms. I discussed the physical exam findings, ancillary test results and final diagnoses with the patient. I answered all of the patient's questions. The patient was satisfied with the care received and felt comfortable with the discharge plan and treatment plan. The patient will call their primary care physician within 24 hours to arrange follow-up and will return to the Emergency Department with any new, persistent or worsening symptoms. Discharge - Discharge Information Problems reviewed: Yes Clinical Impression/Diagnosis: Influenza-like illness Condition: Fair Disposition: HOME - Admission No - Follow up/Referral - Patient Discharge Instructions Additional Instructions: Rest, drink lots of fluids: Teas, water, soups, Pedialyte Saltwater gargles Steamy showers/seem to face break up mucus Avoid contact with others until fevers and cough resolved Lots of handwashing and good hygiene Continue [id number] medications for symptomatic relief Tylenol or Motrin for fever and pain Followup with private physician in one to 2 days as needed Return to emergency department for worsened symptoms, fevers, dehydration - Post Discharge Activity Work/Back to School Note: Back to Work
[2019-04-17 13:45] LABS: PH,URINE 8.5 (5.0-8.0); URINE APPEARANCE CLOUDY; URINE BILIRUBIN NEGATIVE (NEGATIVE); URINE COLOR YELLOW; URINE GLUCOSE (UA) NEGATIVE (NEGATIVE); URINE KETONE 1+ (NEGATIVE); URINE LEUK ESTERASE NEGATIVE (NEGATIVE); URINE NITRITE NEGATIVE (NEGATIVE); URINE PROTEIN NEGATIVE (NEGATIVE); URINE UROBILINOGEN 0.2 mg/dL (0.2-1.0)
== END 2019-04-17 14:02 | disposition home or self-care (01) ==
LOC: JERFT 12:37
DX: J11.1 Influenza due to unidentified influenza virus with other respiratory manifestations (principal)
CPT/HCPCS: 81003; 84703; 87086; 87186; 99283-25; Q0162

== ENCOUNTER 2022-10-25 14:55 | Emergency (ER) | payer OTHER ==
[2022-10-25 15:10] VITALS: BP 102/57; PULSE 77; RESP 16; TEMP 98.5; BMI 27.4
[2022-10-25 16:01] LABS: BASO % 0.5 % (0-2.0); EOS % 2.1 % (0-4.5); HEMATOCRIT 33.9 % (32.4-45.2); HEMOGLOBIN 11.4 GM/dL (10.7-15.3); LYMPH % 33.2 % (8-40); MCH 28.3 pg (25.7-33.7); MCHC 33.8 g/dl (32.0-36.0); MEAN CELL VOLUME 83.9 fl (80-96); MONO % 5.1 % (3.8-10.2); NEUT % 59.1 % (42.8-82.8); PLATELET COUNT 241 10^3/uL (134-434); RBC 4.04 M/mm3 (3.60-5.2); RDW 14.3 % (11.6-15.6); WHITE BLOOD COUNT 7.6 K/mm3 (4.0-10.0)
[2022-10-25 16:21] LABS: CHLORIDE 109 mmol/L (98-107); POTASSIUM 3.7 mmol/L (3.5-5.1); SODIUM 143 mmol/L (136-145)
[2022-10-25 16:23] LABS: ANION GAP 4 MMOL/L (8-16); BLOOD UREA NITROGEN 8.1 mg/dL (7-18); CO2 30 mmol/L (21-32); GLUCOSE,RANDOM 127 mg/dL (74-106)
[2022-10-25 16:26] LABS: CREATININE 0.6 mg/dL (0.55-1.3)
== END 2022-10-25 18:42 | disposition home or self-care (01) ==
LOC: JER 14:55
DX: N93.9 Abnormal uterine and vaginal bleeding, unspecified (principal); N85.00 Endometrial hyperplasia, unspecified
CPT/HCPCS: 36415; 76830-TC; 80048; 84702; 85025; 86850; 86900; 86901; 99284-25

== ENCOUNTER 2022-11-04 04:40 | Day surgery (SDC) | payer OTHER ==
[2022-11-01 09:22] VITALS: BMI 29.2
[2022-11-04] MEDS ORDERED: ceFAZolin 2 GRAM PREMIX BAG IVPB ONE (14:12)
[2022-11-04] MEDS ORDERED: ACETAMINOPHEN 1000 MG/100 ML BAG IVPB PRN (14:28)
[2022-11-04] MEDS ORDERED: oxyCODONE HCL 5 MG TABLET PO PRN ×2 (14:28)
[2022-11-04] MEDS ORDERED: PROMETHAZINE HCL 25 MG/1 ML VIAL IVPB PRN (14:28)
[2022-11-04] MEDS ORDERED: ONDANSETRON 4 MG/2 ML VIAL IVPUSH PRN (14:28)
[2022-11-04] MEDS ORDERED: LACTATED RINGERS SOLUTION 1,000 ML IV SCH (14:30)
[2022-11-04] MEDS ORDERED: LIDOCAINE HCL/PF 2% SDV 5ML VIAL ONE (15:58)
[2022-11-04] MEDS ORDERED: PROPOFOL 20 ML ONE (15:58)
[2022-11-04] MEDS ORDERED: KETOROLAC TROMETHAMINE 30 MG/1 ML VIAL ONE (15:58)
[2022-11-04] MEDS ORDERED: MIDAZOLAM HCL 2 MG/2 ML SINGLE DOSE VIAL ONE (15:58)
[2022-11-04] MEDS ORDERED: ceFAZolin SODIUM 1 GM VIAL ONE (15:58)
[2022-11-04] MEDS ORDERED: DEXAMETHASONE SOD PHOSPHATE 4 MG/1 ML VIAL ONE (15:58)
[2022-11-04] MEDS ORDERED: ONDANSETRON 4 MG/2 ML VIAL ONE (15:58)
[2022-11-04] MEDS ORDERED: SEVOFLURANE 250 ML BTL ONE (16:23)
[2022-11-04] MEDS ORDERED: ACETAMINOPHEN INJECTION 100 ML IVPB ONE (17:22)
[2022-11-04 18:56] VITALS: BP 122/70; PULSE 54; RESP 18; TEMP 97
== END 2022-11-04 18:40 | disposition home or self-care (01) ==
LOC: JASU-SURG 04:40
PROVIDERS: ATTEND Obstetrics & Gynecology
PROC: 0UB98ZZ Excision of Uterus, Via Natural or Artificial Opening Endoscopic (ICD-10-PCS; principal; 2022-11-04 13:30)
DX: N92.1 Excessive and frequent menstruation with irregular cycle (principal); N84.0 Polyp of corpus uteri
CPT/HCPCS: 81025; 88305-TC; 94760